=== PATIENT | female | born 2000 | race Caucasian/White ===

== ENCOUNTER 2018-06-28 08:13 | Inpatient (IN) | payer MEDICAID ==
[2018-06-28] MEDS ORDERED: AMPICILLIN 2 GM/NS (PMX) 100 ML IV (08:30)
[2018-06-28] MEDS ORDERED: CARBOPROST 250 MCG INJ IM (08:30)
[2018-06-28] MEDS ORDERED: MISOPROSTOL 200 MCG TAB PR (08:30)
[2018-06-28] MEDS ORDERED: OXYTOCIN 30 UNITS/LR 500 ML IV ×2 (08:30)
[2018-06-28] MEDS: LACTATED RINGER'S 1,000 ML IV ×3 (09:25→23:48)
[2018-06-28 09:53] LABS: ADD MAN DIFF? NO
[2018-06-28 10:00] LABS: WHITE BLOOD COUNT 12.3 10^3/ul (4.8-10.8)
[2018-06-28 10:00] LABS: BASOPHILS % 0.3 % (0.0-2.0); EOSINOPHILS # 0.2 10^3/ul (0.0-0.5); EOSINOPHILS % 1.3 % (0.0-7.0); HEMATOCRIT 38.1 % (37.0-47.0); HEMOGLOBIN 12.3 g/dl (12.0-16.0); LYMPHOCYTES # 2.5 10^3/ul (0.8-2.9); MEAN CORPUSCULAR HGB CONC 32.3 g/dl (32.0-37.0); MEAN CORPUSCULAR VOLUME 86.8 fl (72.0-104.0); MEAN PLATELET VOLUME 11.3 fl (7.4-10.4); MONOCYTE # 0.9 10^3/ul (0.3-0.9); MONOCYTES % 7.3 % (0.0-13.0); NEUTROPHIL # 8.6 10^3/ul (1.6-7.5); NEUTROPHILS % 70.4 % (30.0-74.0); PLATELET COUNT 253 10^3/UL (140-415); RED BLOOD COUNT 4.39 10^6/ul (4.20-5.40); RED CELL DISTRIBUTION WIDTH 12.6 % (11.5-14.5)
[2018-06-28 10:16] LABS: INR 0.81; PARTIAL THROMBOPLASTIN TIME 24.3 Sec (23.0-35.0); PROTIME 11.3 Sec (11.9-14.9); PT RATIO 0.9
[2018-06-28 11:33] LABS: HEPATITIS B SURFACE ANTIGEN NEGATIVE (NEGATIVE)
[2018-06-28] MEDS ORDERED: AMPICILLIN 1 GM/NS (PMX) 50 ML IV (12:30)
[2018-06-28 19:44] LABS: RAPID PLASMA REAGIN NONREACTIVE (NR)
[2018-06-28] MEDS: BUTORPHANOL 2 MG INJ IV (20:06)
[2018-06-28] MEDS: OXYTOCIN 30 UNITS/LR 500 ML IV (23:47)
[2018-06-29] MEDS: BUTORPHANOL 2 MG INJ IV (01:56)
[2018-06-29] MEDS: LACTATED RINGER'S 1,000 ML IV ×3 (02:23→04:33)
[2018-06-29] MEDS ORDERED: FENTAnyl 2MCG/ML-ROPIV 0.2% 100 ML (03:51)
[2018-06-29] MEDS ORDERED: FENTAnyl 2MCG/ML-ROPIV 0.2% 100 ML BAG EPI (04:00)
[2018-06-29] MEDS ORDERED: NALOXONE (0.4 MG/ML) INJ IV (04:00)
[2018-06-29] MEDS: METHYLERGONOVINE 0.2 MG INJ IM (08:02)
[2018-06-29] MEDS: LIDOCAINE 1% (MPF) 30 ML INJ INJ (08:03)
[2018-06-29] MEDS: OXYTOCIN 30 UNITS/LR 500 ML IV ×2 (08:21→15:30)
[2018-06-29] MEDS ORDERED: METHYLERGONOVINE 0.2 MG INJ IM (08:30)
[2018-06-29] MEDS ORDERED: NACL 0.9% 3 ML SYG IV (08:30)
[2018-06-29] MEDS ORDERED: MISOPROSTOL 200 MCG TAB PR (08:30)
[2018-06-29] MEDS ORDERED: CARBOPROST 250 MCG INJ IM (08:30)
[2018-06-29] MEDS ORDERED: OXYTOCIN 30 UNITS/LR 500 ML IV (08:30)
[2018-06-29] MEDS ORDERED: ONDANSETRON 4 MG INJ IV (08:30)
[2018-06-29] MEDS ORDERED: ACETAMINOPHEN 325 MG TAB PO (08:30)
[2018-06-29] MEDS: CEFAZOLIN 2 GM/50 ML (PMX) 50 ML IVPB (08:33)
[2018-06-29] MEDS: MINERAL OIL LIGHT 10 ML VIAL TOP (08:33)
[2018-06-29] MEDS: SENNA/DOCUSATE NA (8.6MG/50MG) TAB PO ×2 (10:15→21:34)
[2018-06-29] MEDS: IBUPROFEN 600 MG TAB PO ×2 (11:46→17:33)
[2018-06-29] MEDS: WITCH HAZEL/GLYCERIN PAD PR (11:47)
[2018-06-29] MEDS: LANOLIN HPA 1 PKT TOP (11:48)
[2018-06-29] MEDS: BENZOCAINE 20% 56 ML SPRAY TOP (11:48)
[2018-06-29] MEDS: OXYCODONE/ASPIRIN (4.88/325) TAB PO ×2 (18:59→23:33)
[2018-06-30] MEDS: IBUPROFEN 600 MG TAB PO ×4 (00:17→17:30)
[2018-06-30] MEDS: OXYCODONE/ASPIRIN (4.88/325) TAB PO ×2 (08:39→20:46)
[2018-06-30] MEDS: SENNA/DOCUSATE NA (8.6MG/50MG) TAB PO ×2 (08:40→20:46)
[2018-06-30 08:41] LABS: HEMATOCRIT 30.1 % (37.0-47.0); HEMOGLOBIN 9.7 g/dl (12.0-16.0)
[2018-07-01] MEDS: IBUPROFEN 600 MG TAB PO ×3 (00:22→12:07)
[2018-07-01] MEDS: OXYCODONE/ASPIRIN (4.88/325) TAB PO (10:07)
[2018-07-01] MEDS: SENNA/DOCUSATE NA (8.6MG/50MG) TAB PO (10:08)
== END 2018-07-01 15:30 | disposition home or self-care (01) | DRG 807 ==
LOC: OBT 08:13 → PP1 06-29 10:05 → L-D 08:13 → OBT 08:30 → L-D 08:30
PROVIDERS: Obstetrics & Gynecology
PROC: 10E0XZZ Delivery of Products of Conception, External Approach (ICD-10-PCS; principal; 2018-06-29)
PROC: 0HQ9XZZ Repair Perineum Skin, External Approach (ICD-10-PCS; 2018-06-29)
DX: O70.0 First degree perineal laceration during delivery (principal); Z37.0 Single live birth; O77.0 Labor and delivery complicated by meconium in amniotic fluid; Z3A.39 39 weeks gestation of pregnancy
CPT/HCPCS: 62319; 76815; 85014; 85018; 85025; 85610; 85730; 86592; 86850; 86900; 86901; 87340; 99464